=== PATIENT | female | born 1965 | race Caucasian/White ===

== ENCOUNTER 2018-08-30 10:02 | Emergency (ER) | payer MEDICARE, MEDICAID ==
[2018-08-30] MEDS ORDERED: Ondansetron 4 MG Tab.DIS PO ONE (11:17)
[2018-08-30] MEDS ORDERED: Morphine 10 MG/ML Syringe SUBCUT ONE ×2 (11:18→11:49)
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
[2018-08-30] MEDS ORDERED: Morphine 10 MG/ML SDV ONE (11:34)
[2018-08-30] MEDS: Morphine 10 MG/ML SDV IVPUSH ONE ×2 (11:35→11:39)
[2018-08-30] MEDS ORDERED: Sodium Chloride 0.9% 10 ML Syringe FLUSH PRN (12:47)
[2018-08-30] MEDS ORDERED: Morphine 2 MG/ML Syringe IVPUSH ONE (12:51)
[2018-08-30] MEDS ORDERED: Sodium Chloride 0.9% 1,000 ML IV SCH (13:00)
[2018-08-30] MEDS ORDERED: diphenhydrAMINE 50 MG/ML SDV IM ONE (13:11)
[2018-08-30] MEDS ORDERED: LORazepam 2 MG/ML SDV IM ONE (13:11)
[2018-08-30] MEDS ORDERED: Haloperidol Lactate 5 MG/ML SDV IM ONE (13:11)
--- NOTE | 2018-08-30 13:18 | CT ---
INDICATION: Fall with injury. CT HEAD WITHOUT CONTRAST: Spiral examination of the brain was obtained with sagittal and coronal reconstructions, 08/30/18 - no comparisons. Total exam DLP = 1,193.45 mGy-cm. The visualized paranasal sinuses and mastoid air cells appeared normally aerated. No cranial fracture site was identified. No shift of midline structures was noted. The ventricles are somewhat prominent, suggesting central atrophy. There is some patchy decreased density in the periventricular white matter, raising question of microvascular disease type changes, although other cause of leukoencephalopathy cannot be excluded. In the right fontal area and possibly both parietal areas, there may be some patchy decreased density in the white matter peripherally - at the white matter/tolentino matter interface. This appearance could be on the basis of contusion and should be correlated clinically. Similar minimal changes are suggested in the frontal lobes peripheral white matter bilaterally. The orbits appear to be intact. No bleeding site or hematoma was suggested - no acute intracranial abnormality was suggested. IMPRESSION: 1. No acute intracranial abnormality identified. 2. Findings suggest central atrophy. 3. A mild degree of microvascular disease type changes in the white matter are suggested, although other cause of leukoencephalopathy cannot be excluded. 4. Cannot exclude mild degree of contusion in frontal and parietal white matter peripherally. Report was called to Dr. Richard at 1215 hours on 08/30/18. [facility]
--- NOTE | 2018-08-30 13:23 | CT ---
INDICATION: Fall with injury. CT CERVICAL SPINE WITHOUT CONTRAST: Spiral 2.5 mm axial sections were obtained through the cervical spine, with sagittal and coronal reconstructions, 08/30/18 - no comparisons. Total exam DLP = 186.60 mGy-cm. Hypertrophic degenerative changes are noted at the atlantoodontoid joint with some sclerosis and subchondral cystic change and mild to moderate narrowing of the atlantoodontoid joint space. The odontoid was otherwise intact, as was the atlas. Hypertrophic degenerative changes and disk disease are suggested from C3 through C7 with most severe hypertrophic degenerative changes at C4-5, C5-6, and C6-7. Impingement on the C5-6 neural foramina is suggested, more prominently on the right. Prevertebral space and bone density appear to be normal. No definite fracture or dislocation could be identified. IMPRESSION: 1. No acute fracture or dislocation. 2. Degenerative changes and disk disease are noted. Report was called to Dr. Richard at 1215 hours on 08/30/18. [facility]
--- NOTE | 2018-08-30 13:32 | CR ---
INDICATION: Fall with injury. RIGHT HIP WITH PELVIS: Frontal view of the pelvis with AP and lateral views of the right hip were obtained and revealed a partially subcapital femoral neck fracture obliquely through the femoral neck, extending medially and inferiorly towards the intertrochanteric area. There is posterior angulation at the fracture site and significant cranial overriding of the distal fracture fragment with lateral offset of the distal fracture fragment also noted. Mild degenerative changes are noted at both hip joints with the joint spaces fairly well preserved. Mild degenerative changes are noted at the sacroiliac joints. There is a tilt of the lumbar spine to the right, which could be positional. Overall bone density appeared to be normal. IMPRESSION: Femoral neck fracture with moderate deformity. Report was called to Kayla for Dr. Richard at 1225 hours on 08/30/18. [facility]
--- NOTE | 2018-08-30 13:35 | CR ---
INDICATION: Fall with injury. CHEST: A single frontal view of the chest was obtained 08/30/18 and compared with 08/19/09. The heart remains normal in size and shape, allowing for poor inspiration and AP positioning. The aorta is tortuous. A dextroconcave scoliosis of the lower middle thoracic spine is noted. Markings are heavy due to the poor inspiration without a definite active infiltrate or effusion discernable. It is difficult, however, to exclude minimal patchy bronchopneumonia at the lung bases, due to the heavy markings. IMPRESSION: 1. No definite acute process but difficult to exclude patchy bronchopneumonia at the lung bases. 2. ASD aorta. 3. Scoliosis. Report was called to Kayla for Dr. Richard at 1225 hours on 08/30/18. [facility]
--- NOTE | 2018-08-30 13:39 | CR ---
INDICATION: Fall with injury. RIGHT FEMUR: Three views of the right femur revealed a femoral neck fracture, as noted on the right hip/pelvis report. Moderate deformity is noted. The remainder of the femur showed no evidence of fracture or dislocation. There were some mild degenerative changes at the intercondylar spines at the knee. Report was called to Kayla for Dr. Richard at 1225 hours on 08/30/18. [facility]
--- NOTE | 2018-08-30 13:43 | CR ---
INDICATION: Fall with injury. RIGHT ELBOW: Frontal and lateral views of the right elbow revealed no evidence of an acute fracture or dislocation. There was some very minimal degenerative change at the medial joint compartment. Report was called to Kayla Richard at 1225 hours on 08/30/18. [facility]
--- NOTE | 2018-08-30 13:45 | CR ---
INDICATION: Fall with injury. LUMBOSACRAL SPINE: Three views of the lumbosacral spine revealed a moderate dextroconvex rotoscoliosis at the thoracolumbar spine, extending into the mid lumbar to lower middle lumbar spine. Vertebral body and disk heights appear to be grossly maintained. A definite acute fracture or dislocation was not identified. IMPRESSION: 1. No acute fracture or dislocation. 2. Scoliosis with rotatory component. Report was called to Kayla for Dr. Richard at 1225 hours on 08/30/18. [facility]
== END 2018-08-30 15:34 ==
LOC: FB.ED 10:02
DX: S06.330A Contusion and laceration of cerebrum, unspecified, without loss of consciousness, initial encounter (principal); S72.011A Unspecified intracapsular fracture of right femur, initial encounter for closed fracture; Z79.899 Other long term (current) drug therapy; Y99.0 Civilian activity done for income or pay; W18.30XA Fall on same level, unspecified, initial encounter
CPT/HCPCS: 36415; 51702; 70450; 71045; 72100; 72125; 73070; 73502; 73552; 80053; 81001; 85025; 96361; 96372; 96374; 99285; A9270; J1200; J1630; J2060; J2270; J7030

== ENCOUNTER 2023-07-23 18:28 | Emergency (ER) | payer MEDICARE, MEDICAID | END 2023-07-23 19:48 | disposition home or self-care (01) | LOC: FB.ED 18:28 | DX: S93.402A Sprain of unspecified ligament of left ankle, initial encounter (principal); Z79.899 Other long term (current) drug therapy; Z86.19 Personal history of other infectious and parasitic diseases; Z90.49 Acquired absence of other specified parts of digestive tract; Z90.710 Acquired absence of both cervix and uterus; W22.8XXA Striking against or struck by other objects, initial encounter | CPT/HCPCS: 73610-LT; 99283 ==

== ENCOUNTER 2025-03-10 11:01 | Emergency (ER) | payer MEDICARE, MEDICAID | END 2025-03-10 12:19 | disposition home or self-care (01) | LOC: FB.ED 11:01 | DX: S52.572A Other intraarticular fracture of lower end of left radius, initial encounter for closed fracture (principal); Z90.49 Acquired absence of other specified parts of digestive tract; Z90.710 Acquired absence of both cervix and uterus; Z79.899 Other long term (current) drug therapy; W19.XXXA Unspecified fall, initial encounter | CPT/HCPCS: 29125; 73110-LT; 99283 ==